=== PATIENT | male | born 1955 | race Caucasian/White ===

== ENCOUNTER 2019-10-14 15:19 | Inpatient (IN) ==
[2019-10-14] MEDS ORDERED: Ipratropium/Albuterol Neb 3 ML ONE (15:35)
[2019-10-14] MEDS ORDERED: methylPREDNISolone 125 MG/2 ML VIAL IVP ONE (15:47)
[2019-10-14 16:26] LABS: Basophils # 0.1 K/mcL (0.0-0.2); Basophils % 0.8 %; Eosinophils # 0.5 K/mcL (0.0-0.6); Eosinophils % 4.4 %; Hematocrit 44.2 % (37.5-50.1); Immature Granulocytes % 1.5 % (0-4); Lymphocytes # 1.9 K/mcL (0.6-4.6); Lymphocytes % 18.3 %; Mean Corpuscular HGB Conc 33.9 g/dL (31.6-35.5); Mean Corpuscular Hemoglobin 30.7 pg (28.0-33.3); Mean Corpuscular Volume 90.6 fL (83.0-100.0); Mean Platelet Volume 10.7 fL (9.4-12.4); Monocytes # 1.3 K/mcL (0.0-1.3); Monocytes % 12.9 %; Neutrophils # 6.4 K/mcL (1.6-8.9); Platelet Count 228 K/mcL (140-400); Red Blood Count 4.88 M/mcL (4.19-5.50); Red Cell Distribution Width 14.4 % (11.5-14.5); Segmented Neutrophils % 62.1 %; White Blood Count 10.3 K/mcL (4.3-11.1)
[2019-10-14 16:29] LABS: ABG Base Excess 3 mEq/L (-2 to 3); ABG HCO3 29 mEq/L (21-27); ABG Oxygen Saturation 85 % (95-98); ABG PCO2 50 mmHg (35-45); ABG PH 7.37 pH Units (7.32-7.45); ABG PO2 53 mmHg (85-104); ABG TCO2 30 mEq/L (20-26)
[2019-10-14 16:32] LABS: Prothrombin Time 11.3 Seconds (9.4-12.1)
[2019-10-14] MEDS ORDERED: Ipratropium/Albuterol Neb 3 ML IH ONE ×2 (16:33)
[2019-10-14 16:34] LABS: Activated Partial Thrombo Time 31.2 Seconds (26.0-36.0)
[2019-10-14] MEDS ORDERED: Azithromycin 500 MG in D5% in Water 250 ML IVPB ONE (16:34)
[2019-10-14 16:39] LABS: Alanine Aminotransferase 12 Units/L (7-52); Albumin/Globulin Ratio 1.4 (1.1-2.2); Alkaline Phosphatase 60 Units/L (34-104); Aspartate Amino Transferase 10 Units/L (13-39); BUN/Creatinine Ratio 19 (6-26); Bilirubin,Direct 0.2 mg/dL (0.0-0.2); Bilirubin,Indirect 0.4 mg/dL (0.0-1.0); Bilirubin,Total 0.6 mg/dL (0.3-1.0); Blood Urea Nitrogen 18 mg/dL (8-23); Calcium 9.1 mg/dL (8.6-10.3); Carbon Dioxide 28 mEq/L (23-29); Chloride 102 mEq/L (98-107); Globulin 2.8 g/dL (2.4-3.5); Glucose 106 mg/dL (70-105); Osmolality,Calculated 288 (280-300); Potassium 4.2 mEq/L (3.5-5.1); Sodium 138 mEq/L (136-145); Total Protein 6.8 g/dL (6.4-8.9); eGFR For African Americans > 60 (> 60); eGFR For Non-African Americans > 60 (> 60)
[2019-10-14 16:42] LABS: Troponin I < 0.03 ng/mL (< 0.04)
[2019-10-14] MEDS ORDERED: Isovue-370 500 ML BOTTLE IVP ONE (16:43)
[2019-10-14] MEDS ORDERED: D5% in Water 1,000 ML IVC PRN (21:28)
[2019-10-14] MEDS ORDERED: Acetaminophen 325 MG TABLET PO PRN (21:28)
[2019-10-14] MEDS ORDERED: Dextrose Gel 15 GM/37.5 ML TUBE PO PRN ×2 (21:28)
[2019-10-14] MEDS ORDERED: Ondansetron 4 MG/2 ML VIAL IVP PRN (21:28)
[2019-10-14] MEDS ORDERED: *HR* Dextrose 50 % in Water (Vial) 50 ML VIAL IVP PRN (21:28)
[2019-10-14] MEDS ORDERED: Naloxone 0.4 MG/ML INJ IVP PRN (21:28)
[2019-10-14] MEDS: Lisinopril-HCTZ 20-12.5mg TABLET PO SCH (22:38)
[2019-10-14] MEDS: Budesonide/Formoterol 160/4.5 1 PUFF INH IH SCH (22:38)
[2019-10-14] MEDS: Ipratropium/Albuterol Neb 3 ML IH PRN (22:38)
[2019-10-14] MEDS: methylPREDNISolone 125 MG/2 ML VIAL IVP SCH (22:38)
[2019-10-15] MEDS ORDERED: Insulin LISPRO 300 UNITS/3 ML VIAL SQ SCH
[2019-10-15] MEDS ORDERED: Ipratropium/Albuterol Neb 3 ML IH SCH
[2019-10-15] MEDS: *HR* Enoxaparin 40 MG/0.4 ML SYRINGE SQ SCH (06:10)
[2019-10-15 06:16] LABS: Basophils % 0.2 %; Eosinophils % 0.1 %; Hematocrit 42.5 % (37.5-50.1); Hemoglobin 14.5 g/dL (12.9-16.9); Immature Granulocytes % 1.7 % (0-4); Lymphocytes # 1.2 K/mcL (0.6-4.6); Lymphocytes % 11.2 %; Mean Corpuscular HGB Conc 34.1 g/dL (31.6-35.5); Mean Corpuscular Hemoglobin 30.3 pg (28.0-33.3); Mean Corpuscular Volume 88.9 fL (83.0-100.0); Mean Platelet Volume 10.2 fL (9.4-12.4); Monocytes # 0.2 K/mcL (0.0-1.3); Monocytes % 1.6 %; Neutrophils # 8.9 K/mcL (1.6-8.9); Platelet Count 206 K/mcL (140-400); Red Blood Count 4.78 M/mcL (4.19-5.50); Segmented Neutrophils % 85.2 %; White Blood Count 10.4 K/mcL (4.3-11.1)
[2019-10-15] MEDS: Ipratropium/Albuterol Neb 3 ML IH PRN ×3 (06:16→22:48)
[2019-10-15] MEDS: Budesonide/Formoterol 160/4.5 1 PUFF INH IH SCH ×2 (06:18→22:47)
[2019-10-15 06:21] LABS: VBG HCO3 27 mEq/L (21-27); VBG PCO2 40 mmHg (41-51); VBG PH 7.43 pH Units (7.32-7.42); VBG PO2 98 mmHg (25-50)
[2019-10-15 06:31] LABS: BUN/Creatinine Ratio 18 (6-26); Blood Urea Nitrogen 17 mg/dL (8-23); Carbon Dioxide 28 mEq/L (23-29); Chloride 99 mEq/L (98-107); Glucose 192 mg/dL (70-105); Magnesium 1.7 mg/dL (1.6-2.6); Osmolality,Calculated 289 (280-300); Phosphorous 3.9 mg/dL (2.7-4.5); Potassium 4.1 mEq/L (3.5-5.1); Sodium 136 mEq/L (136-145); eGFR For African Americans > 60 (> 60); eGFR For Non-African Americans > 60 (> 60)
[2019-10-15 06:37] LABS: VBG HCO3 27 mEq/L (21-27); VBG PCO2 39 mmHg (41-51); VBG PH 7.44 pH Units (7.32-7.42); VBG PO2 125 mmHg (25-50)
[2019-10-15] MEDS ORDERED: *HR* Metformin 500 MG TABLET PO SCH (08:00)
[2019-10-15] MEDS: Insulin LISPRO 300 UNITS/3 ML VIAL SQ SCH ×4 (08:26→22:45)
[2019-10-15] MEDS: Aspirin Enteric Coated 81 MG Tablet PO SCH (08:27)
[2019-10-15] MEDS: Lisinopril-HCTZ 20-12.5mg TABLET PO SCH ×2 (08:27→22:46)
[2019-10-15] MEDS: Azithromycin 250 MG TABLET PO SCH (08:28)
[2019-10-15] MEDS: methylPREDNISolone 125 MG/2 ML VIAL IVP SCH ×4 (08:28→22:46)
[2019-10-15] MEDS ORDERED: Lisinopril-HCTZ 20-12.5mg TABLET PO SCH (09:00)
[2019-10-15 12:31] LABS: Estimated Average Glucose 143 mg/dl
[2019-10-15] MEDS: cefTRIAXone 1,000 MG in Water for inj. (sterile) 10 ML IVP SCH (18:04)
[2019-10-16 05:30] LABS: Basophils % 0.1 %; Hematocrit 42.7 % (37.5-50.1); Hemoglobin 14.4 g/dL (12.9-16.9); Immature Granulocytes % 0.9 % (0-4); Lymphocytes # 1.3 K/mcL (0.6-4.6); Lymphocytes % 5.9 %; Mean Corpuscular HGB Conc 33.7 g/dL (31.6-35.5); Mean Corpuscular Hemoglobin 30.7 pg (28.0-33.3); Mean Platelet Volume 10.6 fL (9.4-12.4); Monocytes # 1.1 K/mcL (0.0-1.3); Platelet Count 245 K/mcL (140-400); Red Blood Count 4.69 M/mcL (4.19-5.50); Red Cell Distribution Width 14.4 % (11.5-14.5); Segmented Neutrophils % 88.1 %; White Blood Count 21.9 K/mcL (4.3-11.1)
[2019-10-16 05:32] LABS: Neutrophils # 19.3 K/mcL (1.6-8.9)
[2019-10-16 05:44] LABS: Calcium 8.9 mg/dL (8.6-10.3); Potassium 4.5 mEq/L (3.5-5.1)
[2019-10-16] MEDS: Ipratropium/Albuterol Neb 3 ML IH PRN ×2 (06:09→11:19)
[2019-10-16] MEDS: Budesonide/Formoterol 160/4.5 1 PUFF INH IH SCH ×2 (06:10→22:08)
[2019-10-16] MEDS: *HR* Enoxaparin 40 MG/0.4 ML SYRINGE SQ SCH (06:54)
[2019-10-16] MEDS: methylPREDNISolone 125 MG/2 ML VIAL IVP SCH ×3 (08:00→17:19)
[2019-10-16] MEDS: Azithromycin 250 MG TABLET PO SCH (08:01)
[2019-10-16] MEDS: Aspirin Enteric Coated 81 MG Tablet PO SCH (08:01)
[2019-10-16] MEDS: Insulin LISPRO 300 UNITS/3 ML VIAL SQ SCH ×4 (08:04→22:00)
[2019-10-16] MEDS: 0.9 % Sodium Chloride 1,000 ML IVC SCH ×2 (13:37→21:57)
[2019-10-16] MEDS: cefTRIAXone 1,000 MG in Water for inj. (sterile) 10 ML IVP SCH (17:19)
[2019-10-16] MEDS: Lisinopril-HCTZ 20-12.5mg TABLET PO SCH (21:49)
[2019-10-17 05:51] LABS: Basophils % 0.1 %; Eosinophils % 0.1 %; Hematocrit 40.8 % (37.5-50.1); Hemoglobin 13.6 g/dL (12.9-16.9); Immature Granulocytes % 0.7 % (0-4); Lymphocytes # 0.9 K/mcL (0.6-4.6); Mean Corpuscular HGB Conc 33.3 g/dL (31.6-35.5); Mean Corpuscular Hemoglobin 30.6 pg (28.0-33.3); Mean Corpuscular Volume 91.7 fL (83.0-100.0); Mean Platelet Volume 10.4 fL (9.4-12.4); Monocytes % 5.6 %; Neutrophils # 15.6 K/mcL (1.6-8.9); Platelet Count 213 K/mcL (140-400); Red Blood Count 4.45 M/mcL (4.19-5.50); Red Cell Distribution Width 14.6 % (11.5-14.5); Segmented Neutrophils % 88.5 %; White Blood Count 17.6 K/mcL (4.3-11.1)
[2019-10-17 06:03] LABS: BUN/Creatinine Ratio 36 (6-26); Blood Urea Nitrogen 44 mg/dL (8-23); Calcium 8.4 mg/dL (8.6-10.3); Carbon Dioxide 26 mEq/L (23-29); Chloride 101 mEq/L (98-107); Glucose 154 mg/dL (70-105); Osmolality,Calculated 296 (280-300); Potassium 4.5 mEq/L (3.5-5.1); Sodium 136 mEq/L (136-145); eGFR For African Americans > 60 (> 60); eGFR For Non-African Americans > 60 (> 60)
[2019-10-17] MEDS: 0.9 % Sodium Chloride 1,000 ML IVC SCH ×3 (06:40→17:26)
[2019-10-17] MEDS: methylPREDNISolone 125 MG/2 ML VIAL IVP SCH ×2 (06:41→17:27)
[2019-10-17] MEDS: *HR* Enoxaparin 40 MG/0.4 ML SYRINGE SQ SCH (06:41)
[2019-10-17] MEDS: Budesonide/Formoterol 160/4.5 1 PUFF INH IH SCH ×2 (08:08→22:01)
[2019-10-17] MEDS: Insulin LISPRO 300 UNITS/3 ML VIAL SQ SCH ×4 (08:59→21:39)
[2019-10-17] MEDS: Aspirin Enteric Coated 81 MG Tablet PO SCH (09:00)
[2019-10-17] MEDS: Azithromycin 250 MG TABLET PO SCH (09:00)
[2019-10-17] MEDS: cefTRIAXone 1,000 MG in Water for inj. (sterile) 10 ML IVP SCH (17:27)
[2019-10-17] MEDS: Lisinopril-HCTZ 20-12.5mg TABLET PO SCH (21:40)
[2019-10-18] MEDS: 0.9 % Sodium Chloride 1,000 ML IVC SCH (03:17)
[2019-10-18 05:41] LABS: Basophils % 0.2 %; Hematocrit 39.1 % (37.5-50.1); Hemoglobin 13.2 g/dL (12.9-16.9); Immature Granulocytes % 1.3 % (0-4); Lymphocytes # 0.9 K/mcL (0.6-4.6); Lymphocytes % 6.3 %; Mean Corpuscular HGB Conc 33.8 g/dL (31.6-35.5); Mean Corpuscular Hemoglobin 30.6 pg (28.0-33.3); Mean Corpuscular Volume 90.7 fL (83.0-100.0); Mean Platelet Volume 10.9 fL (9.4-12.4); Monocytes % 7.3 %; Neutrophils # 12.1 K/mcL (1.6-8.9); Platelet Count 196 K/mcL (140-400); Red Blood Count 4.31 M/mcL (4.19-5.50); Red Cell Distribution Width 14.3 % (11.5-14.5); Segmented Neutrophils % 84.9 %; White Blood Count 14.2 K/mcL (4.3-11.1)
[2019-10-18] MEDS: *HR* Enoxaparin 40 MG/0.4 ML SYRINGE SQ SCH (05:42)
[2019-10-18] MEDS: methylPREDNISolone 125 MG/2 ML VIAL IVP SCH (05:42)
[2019-10-18 05:56] LABS: BUN/Creatinine Ratio 37 (6-26); Blood Urea Nitrogen 36 mg/dL (8-23); Calcium 7.9 mg/dL (8.6-10.3); Carbon Dioxide 23 mEq/L (23-29); Chloride 105 mEq/L (98-107); Glucose 125 mg/dL (70-105); Osmolality,Calculated 292 (280-300); Potassium 4.1 mEq/L (3.5-5.1); Sodium 136 mEq/L (136-145); eGFR For African Americans > 60 (> 60); eGFR For Non-African Americans > 60 (> 60)
[2019-10-18 07:35] VITALS: BP 158/86
[2019-10-18] MEDS: Insulin LISPRO 300 UNITS/3 ML VIAL SQ SCH ×2 (08:09→11:59)
[2019-10-18] MEDS: Aspirin Enteric Coated 81 MG Tablet PO SCH (08:34)
[2019-10-18] MEDS: Azithromycin 250 MG TABLET PO SCH (08:34)
[2019-10-18] MEDS: Budesonide/Formoterol 160/4.5 1 PUFF INH IH SCH (09:38)
== END 2019-10-18 13:03 | disposition home or self-care (01) | DRG 190 ==
LOC: EMEROOGRE 15:19 → INPGRE 20:44
PROVIDERS: ADMIT Family Medicine; ATTEND Family Medicine

== ENCOUNTER 2020-09-07 11:36 | Inpatient (IN) ==
[2020-09-07] MEDS ORDERED: Ipratropium/Albuterol Neb 3 ML IH PRN (19:40)
[2020-09-07] MEDS ORDERED: Fluticasone Propionate Nasal 50 MCG/SPRAY BOTTLE NS PRN (19:40)
[2020-09-07] MEDS: Budesonide/Formoterol 160/4.5 1 PUFF INH IH SCH (21:39)
[2020-09-07] MEDS: Furosemide 20 MG TABLET PO SCH (22:00)
[2020-09-07] MEDS: cilostazoL 100 MG TABLET PO SCH (22:00)
[2020-09-08] MEDS: *HR* Enoxaparin 40 MG/0.4 ML SYRINGE SQ SCH (06:37)
[2020-09-08] MEDS: *HR* Metformin 500 MG TABLET PO SCH ×2 (09:48→16:36)
[2020-09-08] MEDS: Aspirin Enteric Coated 81 MG Tablet PO SCH (09:49)
[2020-09-08] MEDS: Furosemide 20 MG TABLET PO SCH ×2 (09:49→16:36)
[2020-09-08] MEDS: cilostazoL 100 MG TABLET PO SCH ×2 (09:49→20:18)
[2020-09-08] MEDS: Tiotropium 10 INH DOSE IH SCH (10:18)
[2020-09-08] MEDS: Budesonide/Formoterol 160/4.5 1 PUFF INH IH SCH ×2 (10:19→19:57)
[2020-09-08] MEDS ORDERED: Loratadine 10 MG TABLET PO PRN (14:59)
[2020-09-09] MEDS: *HR* Enoxaparin 40 MG/0.4 ML SYRINGE SQ SCH (06:07)
[2020-09-09] MEDS: cilostazoL 100 MG TABLET PO SCH ×2 (08:31→20:22)
[2020-09-09] MEDS: *HR* Metformin 500 MG TABLET PO SCH ×2 (08:31→17:32)
[2020-09-09] MEDS: Isosorbide MONOnitrate (24 HR) 30 MG TAB.ER.24H PO SCH (08:32)
[2020-09-09] MEDS: Aspirin Enteric Coated 81 MG Tablet PO SCH (08:32)
[2020-09-09] MEDS: Furosemide 20 MG TABLET PO SCH ×2 (08:32→17:32)
[2020-09-09] MEDS: Budesonide/Formoterol 160/4.5 1 PUFF INH IH SCH ×2 (10:20→20:16)
[2020-09-09] MEDS: Tiotropium 10 INH DOSE IH SCH (10:21)
[2020-09-10] MEDS: *HR* Enoxaparin 40 MG/0.4 ML SYRINGE SQ SCH (04:43)
[2020-09-10] MEDS: Isosorbide MONOnitrate (24 HR) 30 MG TAB.ER.24H PO SCH (08:45)
[2020-09-10] MEDS: cilostazoL 100 MG TABLET PO SCH (08:45)
[2020-09-10] MEDS: *HR* Metformin 500 MG TABLET PO SCH (08:45)
[2020-09-10] MEDS: Aspirin Enteric Coated 81 MG Tablet PO SCH (08:45)
[2020-09-10] MEDS: Furosemide 20 MG TABLET PO SCH (08:45)
[2020-09-10 09:52] LABS: Basophils # 0.1 K/mcL (0.0-0.2); Basophils % 0.5 %; Eosinophils # 0.6 K/mcL (0.0-0.6); Eosinophils % 4.3 %; Hemoglobin 12.2 g/dL (12.9-16.9); Immature Granulocytes % 1.2 % (0-4); Lymphocytes # 2.3 K/mcL (0.6-4.6); Lymphocytes % 16.6 %; Mean Corpuscular HGB Conc 33.9 g/dL (31.6-35.5); Mean Corpuscular Hemoglobin 29.7 pg (28.0-33.3); Mean Corpuscular Volume 87.6 fL (83.0-100.0); Mean Platelet Volume 10.8 fL (9.4-12.4); Monocytes # 1.8 K/mcL (0.0-1.3); Monocytes % 13.2 %; Neutrophils # 8.9 K/mcL (1.6-8.9); Platelet Count 300 K/mcL (140-400); Red Blood Count 4.11 M/mcL (4.19-5.50); Red Cell Distribution Width 13.6 % (11.5-14.5); Segmented Neutrophils % 64.2 %; White Blood Count 13.8 K/mcL (4.3-11.1)
[2020-09-10 10:04] LABS: Calcium 8.2 mg/dL (8.6-10.3); Potassium 3.7 mEq/L (3.5-5.1)
[2020-09-10 10:09] LABS: Troponin I 0.03 ng/mL (< 0.04)
[2020-09-10] MEDS ORDERED: 0.9 % Sodium Chloride 250 ML ONE (10:37)
[2020-09-10] MEDS ORDERED: 0.9 % Sodium Chloride 250 ML IVC ONE (10:39)
[2020-09-10] MEDS ORDERED: Apixaban 5 MG TABLET PO SCH (10:44)
[2020-09-10] MEDS: Budesonide/Formoterol 160/4.5 1 PUFF INH IH SCH (10:54)
[2020-09-10] MEDS: Tiotropium 10 INH DOSE IH SCH (10:54)
[2020-09-10] MEDS ORDERED: 0.9 % Sodium Chloride 1,000 ML IVC SCH (11:15)
[2020-09-10 12:54] VITALS: BP 110/79
== END 2020-09-10 14:50 | disposition short-term general hospital (02) | DRG 948 ==
LOC: INPGRE 18:05
PROVIDERS: ADMIT Family Medicine; ATTEND Family Medicine

== ENCOUNTER 2021-01-20 20:51 | Inpatient (IN) ==
[2021-01-20] MEDS ORDERED: 0.9 % Sodium Chloride 1,000 ML IVC ONE ×2 (21:13→22:58)
[2021-01-20 22:40] LABS: Basophils % 0.3 %; Eosinophils # 0.1 K/mcL (0.0-0.6); Eosinophils % 1.9 %; Hematocrit 41.3 % (37.5-50.1); Hemoglobin 13.7 g/dL (12.9-16.9); Immature Granulocytes % 0.7 % (0-4); Lymphocytes # 1.8 K/mcL (0.6-4.6); Lymphocytes % 25.8 %; Mean Corpuscular HGB Conc 33.2 g/dL (31.6-35.5); Mean Corpuscular Hemoglobin 29.3 pg (28.0-33.3); Mean Corpuscular Volume 88.2 fL (83.0-100.0); Mean Platelet Volume 10.5 fL (9.4-12.4); Monocytes # 1.2 K/mcL (0.0-1.3); Monocytes % 17.7 %; Neutrophils # 3.7 K/mcL (1.6-8.9); Platelet Count 155 K/mcL (140-400); Red Blood Count 4.68 M/mcL (4.19-5.50); Red Cell Distribution Width 14.3 % (11.5-14.5); Segmented Neutrophils % 53.6 %; White Blood Count 6.9 K/mcL (4.3-11.1)
[2021-01-20 22:54] LABS: Alanine Aminotransferase 23 Units/L (7-52); Albumin 2.8 g/dL (3.5-5.7); Albumin/Globulin Ratio 1.1 (1.1-2.2); Alkaline Phosphatase 60 Units/L (34-104); Aspartate Amino Transferase 25 Units/L (13-39); BUN/Creatinine Ratio 29 (6-26); Bilirubin,Total 0.5 mg/dL (0.3-1.0); Blood Urea Nitrogen 32 mg/dL (8-23); Calcium 7.8 mg/dL (8.6-10.3); Carbon Dioxide 26 mEq/L (23-29); Chloride 101 mEq/L (98-107); Globulin 2.5 g/dL (2.4-3.5); Glucose 87 mg/dL (70-105); Osmolality,Calculated 286 (280-300); Sodium 135 mEq/L (136-145); Total Protein 5.3 g/dL (6.4-8.9); eGFR For African Americans > 60 (> 60); eGFR For Non-African Americans > 60 (> 60)
[2021-01-20] MEDS ORDERED: Isovue-370 500 ML BOTTLE IVP ONE (22:57)
[2021-01-21 01:03] LABS: Bilirubin,Urine Negative (Negative); Blood,Urine Moderate (Negative); Clarity,Urine Clear (Clear); Color,Urine Yellow (Yellow); Glucose,Urine (UA) Normal (Normal); Ketones,Urine Trace mg/dL (Negative); Leukocyte Esterase,Urine Negative (Negative); Nitrite,Urine Negative (Negative); Protein,Urine >=300 mg/dL (Neg-Trace); Specific Gravity,Urine 1.025 (1.010-1.025); Urobilinogen,Urine Normal (Normal)
[2021-01-21 01:37] LABS: Hyaline Casts,Urine Few per lpf (None Seen); WBC,Urine 0-3 per hpf (0-3)
[2021-01-21] MEDS ORDERED: Naloxone 0.4 MG/ML INJ IVP PRN (02:54)
[2021-01-21] MEDS ORDERED: Ondansetron 4 MG/2 ML VIAL IVP PRN (02:54)
[2021-01-21] MEDS ORDERED: Ondansetron ODT 4 MG TAB.RAPDIS SL PRN (02:54)
[2021-01-21 03:16] LABS: Lactate Dehydrogenase 214 Units/L (140-271)
[2021-01-21] MEDS: 0.9 % Sodium Chloride 1,000 ML IVC SCH (03:59)
[2021-01-21 06:12] LABS: Troponin I <= 0.04 ng/mL (0-0.04)
[2021-01-21] MEDS: *HR* Enoxaparin 40 MG/0.4 ML SYRINGE SQ SCH (06:16)
[2021-01-21] MEDS: Budesonide/Formoterol 160/4.5 1 PUFF INH IH SCH ×2 (08:05→20:26)
[2021-01-21] MEDS: Tiotropium 10 INH DOSE IH SCH (08:05)
[2021-01-21] MEDS: Furosemide 40 MG TABLET PO SCH (08:44)
[2021-01-21] MEDS: lisinopriL 20 MG TABLET PO SCH (08:44)
[2021-01-21] MEDS: hydrOXYzine pamoate 25 MG CAPSULE PO SCH ×2 (08:44→20:58)
[2021-01-21] MEDS: Isosorbide MONOnitrate (24 HR) 30 MG TAB.ER.24H PO SCH (08:44)
[2021-01-21 08:47] LABS: C-Reactive Protein 8 mg/L (Less than 10)
[2021-01-21] MEDS ORDERED: Apixaban 5 MG TABLET PO SCH (09:00)
[2021-01-21 09:03] LABS: Ferritin 958 ng/mL (20-250)
[2021-01-21 19:16] LABS: Estimated Average Glucose 134 mg/dl; Hemoglobin A1C 6.3 %
[2021-01-22] MEDS: *HR* Enoxaparin 40 MG/0.4 ML SYRINGE SQ SCH (05:28)
[2021-01-22 06:06] LABS: Hematocrit 37.9 % (37.5-50.1); Hemoglobin 12.6 g/dL (12.9-16.9); Mean Corpuscular HGB Conc 33.2 g/dL (31.6-35.5); Mean Corpuscular Hemoglobin 29.4 pg (28.0-33.3); Mean Corpuscular Volume 88.6 fL (83.0-100.0); Mean Platelet Volume 10.4 fL (9.4-12.4); Platelet Count 136 K/mcL (140-400); Red Blood Count 4.28 M/mcL (4.19-5.50); Red Cell Distribution Width 14.3 % (11.5-14.5); White Blood Count 5.5 K/mcL (4.3-11.1)
[2021-01-22 06:28] LABS: Alanine Aminotransferase 23 Units/L (7-52); Albumin 2.7 g/dL (3.5-5.7); Alkaline Phosphatase 61 Units/L (34-104); Aspartate Amino Transferase 21 Units/L (13-39); BUN/Creatinine Ratio 24 (6-26); Bilirubin,Total 0.5 mg/dL (0.3-1.0); Blood Urea Nitrogen 24 mg/dL (8-23); Calcium 7.4 mg/dL (8.6-10.3); Carbon Dioxide 25 mEq/L (23-29); Chloride 103 mEq/L (98-107); Globulin 2.6 g/dL (2.4-3.5); Glucose 89 mg/dL (70-105); Magnesium 1.4 mg/dL (1.6-2.6); Osmolality,Calculated 284 (280-300); Potassium 3.9 mEq/L (3.5-5.1); Sodium 135 mEq/L (136-145); Total Protein 5.3 g/dL (6.4-8.9); eGFR For African Americans > 60 (> 60); eGFR For Non-African Americans > 60 (> 60)
[2021-01-22] MEDS: 0.9 % Sodium Chloride 1,000 ML IVC SCH (09:07)
[2021-01-22] MEDS: lisinopriL 20 MG TABLET PO SCH (09:09)
[2021-01-22] MEDS: Isosorbide MONOnitrate (24 HR) 30 MG TAB.ER.24H PO SCH (09:09)
[2021-01-22] MEDS: hydrOXYzine pamoate 25 MG CAPSULE PO SCH ×2 (09:10→20:05)
[2021-01-22] MEDS: Furosemide 40 MG TABLET PO SCH (09:10)
[2021-01-22] MEDS: Tiotropium 10 INH DOSE IH SCH (10:10)
[2021-01-22] MEDS: Budesonide/Formoterol 160/4.5 1 PUFF INH IH SCH ×2 (10:10→20:15)
[2021-01-22 14:08] LABS: C-Reactive Protein 15 mg/L (Less than 10); Ferritin 986 ng/mL (20-250)
[2021-01-23] MEDS: *HR* Enoxaparin 40 MG/0.4 ML SYRINGE SQ SCH (04:51)
[2021-01-23] MEDS: lisinopriL 20 MG TABLET PO SCH (07:55)
[2021-01-23] MEDS: hydrOXYzine pamoate 25 MG CAPSULE PO SCH ×2 (07:55→20:27)
[2021-01-23] MEDS: Furosemide 40 MG TABLET PO SCH (07:56)
[2021-01-23] MEDS: Isosorbide MONOnitrate (24 HR) 30 MG TAB.ER.24H PO SCH (07:56)
[2021-01-23 08:21] LABS: Hematocrit 37.7 % (37.5-50.1); Hemoglobin 12.6 g/dL (12.9-16.9); Mean Corpuscular HGB Conc 33.4 g/dL (31.6-35.5); Mean Corpuscular Hemoglobin 29.2 pg (28.0-33.3); Mean Corpuscular Volume 87.3 fL (83.0-100.0); Mean Platelet Volume 10.6 fL (9.4-12.4); Platelet Count 124 K/mcL (140-400); Red Blood Count 4.32 M/mcL (4.19-5.50); Red Cell Distribution Width 14.1 % (11.5-14.5); White Blood Count 4.9 K/mcL (4.3-11.1)
[2021-01-23 08:40] LABS: Alanine Aminotransferase 18 Units/L (7-52); Albumin 2.5 g/dL (3.5-5.7); Alkaline Phosphatase 65 Units/L (34-104); Aspartate Amino Transferase 19 Units/L (13-39); BUN/Creatinine Ratio 26 (6-26); Bilirubin,Total 0.5 mg/dL (0.3-1.0); Blood Urea Nitrogen 23 mg/dL (8-23); Calcium 7.2 mg/dL (8.6-10.3); Carbon Dioxide 23 mEq/L (23-29); Chloride 104 mEq/L (98-107); Globulin 2.4 g/dL (2.4-3.5); Glucose 93 mg/dL (70-105); Osmolality,Calculated 281 (280-300); Potassium 3.9 mEq/L (3.5-5.1); Sodium 134 mEq/L (136-145); Total Protein 4.9 g/dL (6.4-8.9); eGFR For African Americans > 60 (> 60); eGFR For Non-African Americans > 60 (> 60)
[2021-01-23] MEDS: Budesonide/Formoterol 160/4.5 1 PUFF INH IH SCH ×2 (09:15→20:11)
[2021-01-23] MEDS: Tiotropium 10 INH DOSE IH SCH (09:16)
[2021-01-23 13:48] LABS: C-Reactive Protein 42 mg/L (Less than 10)
[2021-01-23 14:02] LABS: Ferritin 1041 ng/mL (20-250)
[2021-01-23] MEDS: levoFLOXacin 750 MG/150 ML 750 MG/150 ML BAG IVPB SCH (14:23)
[2021-01-23] MEDS: Dexamethasone Sodium Phos/PF 10 MG/ML VIAL IVP SCH (14:23)
[2021-01-23] MEDS ORDERED: Remdesivir 200 MG in 0.9 % Sodium Chloride 100 ML IVPB ONE (21:00)
[2021-01-24] MEDS: *HR* Enoxaparin 40 MG/0.4 ML SYRINGE SQ SCH (05:57)
[2021-01-24 06:02] LABS: Albumin 2.5 g/dL (3.5-5.7); Bilirubin,Direct 0.1 mg/dL (0.0-0.2); Bilirubin,Indirect 0.2 mg/dL (0.0-1.0); Bilirubin,Total 0.3 mg/dL (0.3-1.0); Globulin 2.5 g/dL (2.4-3.5)
[2021-01-24] MEDS: Furosemide 40 MG TABLET PO SCH (08:51)
[2021-01-24] MEDS: levoFLOXacin 750 MG/150 ML 750 MG/150 ML BAG IVPB SCH (08:51)
[2021-01-24] MEDS: hydrOXYzine pamoate 25 MG CAPSULE PO SCH ×2 (08:52→20:38)
[2021-01-24] MEDS: Dexamethasone Sodium Phos/PF 10 MG/ML VIAL IVP SCH (08:52)
[2021-01-24] MEDS: lisinopriL 20 MG TABLET PO SCH (08:52)
[2021-01-24] MEDS: Isosorbide MONOnitrate (24 HR) 30 MG TAB.ER.24H PO SCH (08:52)
[2021-01-24] MEDS: Tiotropium 10 INH DOSE IH SCH (11:08)
[2021-01-24] MEDS: Budesonide/Formoterol 160/4.5 1 PUFF INH IH SCH ×2 (11:09→19:39)
[2021-01-24 18:55] LABS: Bilirubin,Urine Negative (Negative); Blood,Urine Moderate (Negative); Clarity,Urine Clear (Clear); Color,Urine Yellow (Yellow); Glucose,Urine (UA) Normal (Normal); Ketones,Urine Negative (Negative); Leukocyte Esterase,Urine Negative (Negative); Nitrite,Urine Negative (Negative); Protein,Urine >=300 mg/dL (Neg-Trace); Specific Gravity,Urine >= 1.030 (1.010-1.025); Urobilinogen,Urine Normal (Normal)
[2021-01-24 19:04] LABS: Hyaline Casts,Urine Few per lpf (None Seen); RBC,Urine 0-3 per hpf (0-3); Squamous Epithelial Cell,Urine Few per hpf (None-Few); WBC,Urine 0-3 per hpf (0-3)
[2021-01-24 19:05] LABS: Bacteria,Urine None Seen per hpf (None-Few)
[2021-01-24] MEDS: Remdesivir 100 MG in 0.9 % Sodium Chloride 100 ML IVPB SCH (20:39)
[2021-01-25] MEDS: *HR* Enoxaparin 40 MG/0.4 ML SYRINGE SQ SCH (04:38)
[2021-01-25 06:04] LABS: Albumin 2.4 g/dL (3.5-5.7); Bilirubin,Direct 0.1 mg/dL (0.0-0.2); Bilirubin,Indirect 0.2 mg/dL (0.0-1.0); Bilirubin,Total 0.3 mg/dL (0.3-1.0); Globulin 2.5 g/dL (2.4-3.5); Total Protein 4.9 g/dL (6.4-8.9)
[2021-01-25] MEDS: levoFLOXacin 750 MG/150 ML 750 MG/150 ML BAG IVPB SCH (08:27)
[2021-01-25] MEDS: Dexamethasone Sodium Phos/PF 10 MG/ML VIAL IVP SCH (08:28)
[2021-01-25] MEDS: lisinopriL 20 MG TABLET PO SCH (08:28)
[2021-01-25] MEDS: Furosemide 40 MG TABLET PO SCH (08:29)
[2021-01-25] MEDS: hydrOXYzine pamoate 25 MG CAPSULE PO SCH ×2 (08:30→20:24)
[2021-01-25] MEDS: Isosorbide MONOnitrate (24 HR) 30 MG TAB.ER.24H PO SCH (08:30)
[2021-01-25] MEDS: Budesonide/Formoterol 160/4.5 1 PUFF INH IH SCH ×2 (09:17→20:18)
[2021-01-25] MEDS: Tiotropium 10 INH DOSE IH SCH (09:18)
[2021-01-25] MEDS ORDERED: Dextrose Gel 15 GM/37.5 ML TUBE PO PRN ×2 (09:20)
[2021-01-25] MEDS ORDERED: D5% in Water 1,000 ML IVC PRN (09:20)
[2021-01-25] MEDS ORDERED: *HR* Dextrose 50 % in Water (Syg) 50 ML SYRINGE IVP PRN (09:20)
[2021-01-25] MEDS: Insulin LISPRO 300 UNITS/3 ML VIAL SUBQ SCH ×3 (12:59→20:45)
[2021-01-25] MEDS: Remdesivir 100 MG in 0.9 % Sodium Chloride 100 ML IVPB SCH (19:48)
[2021-01-26] MEDS: *HR* Enoxaparin 40 MG/0.4 ML SYRINGE SQ SCH (04:03)
[2021-01-26 06:10] LABS: Basophils % 0.2 %; Hematocrit 36.5 % (37.5-50.1); Hemoglobin 12.2 g/dL (12.9-16.9); Immature Granulocytes % 1.3 % (0-4); Lymphocytes # 1.6 K/mcL (0.6-4.6); Mean Corpuscular HGB Conc 33.4 g/dL (31.6-35.5); Mean Corpuscular Hemoglobin 29.3 pg (28.0-33.3); Mean Corpuscular Volume 87.5 fL (83.0-100.0); Mean Platelet Volume 10.1 fL (9.4-12.4); Monocytes # 1.1 K/mcL (0.0-1.3); Monocytes % 11.2 %; Neutrophils # 6.9 K/mcL (1.6-8.9); Platelet Count 181 K/mcL (140-400); Red Blood Count 4.17 M/mcL (4.19-5.50); Red Cell Distribution Width 14.2 % (11.5-14.5); Segmented Neutrophils % 71.3 %; White Blood Count 9.7 K/mcL (4.3-11.1)
[2021-01-26 06:26] LABS: BUN/Creatinine Ratio 38 (6-26); Blood Urea Nitrogen 40 mg/dL (8-23); Calcium 7.3 mg/dL (8.6-10.3); Carbon Dioxide 25 mEq/L (23-29); Chloride 104 mEq/L (98-107); Glucose 120 mg/dL (70-105); Osmolality,Calculated 293 (280-300); Potassium 4.2 mEq/L (3.5-5.1); Sodium 136 mEq/L (136-145); eGFR For African Americans > 60 (> 60); eGFR For Non-African Americans > 60 (> 60)
[2021-01-26 06:27] LABS: Albumin 2.4 g/dL (3.5-5.7); Bilirubin,Direct 0.1 mg/dL (0.0-0.2); Bilirubin,Indirect 0.2 mg/dL (0.0-1.0); Bilirubin,Total 0.3 mg/dL (0.3-1.0); Globulin 2.4 g/dL (2.4-3.5); Total Protein 4.8 g/dL (6.4-8.9)
[2021-01-26] MEDS: Furosemide 40 MG TABLET PO SCH (08:47)
[2021-01-26] MEDS: hydrOXYzine pamoate 25 MG CAPSULE PO SCH ×2 (08:47→21:20)
[2021-01-26] MEDS: Insulin LISPRO 300 UNITS/3 ML VIAL SUBQ SCH ×4 (08:47→22:52)
[2021-01-26] MEDS: Dexamethasone Sodium Phos/PF 10 MG/ML VIAL IVP SCH (08:48)
[2021-01-26] MEDS: Isosorbide MONOnitrate (24 HR) 30 MG TAB.ER.24H PO SCH (08:48)
[2021-01-26] MEDS: lisinopriL 20 MG TABLET PO SCH (08:48)
[2021-01-26] MEDS: levoFLOXacin 750 MG/150 ML 750 MG/150 ML BAG IVPB SCH (08:50)
[2021-01-26] MEDS: Tiotropium 10 INH DOSE IH SCH (10:12)
[2021-01-26] MEDS: Budesonide/Formoterol 160/4.5 1 PUFF INH IH SCH ×2 (10:13→20:48)
[2021-01-26] MEDS: Remdesivir 100 MG in 0.9 % Sodium Chloride 100 ML IVPB SCH (21:19)
[2021-01-27] MEDS: *HR* Enoxaparin 40 MG/0.4 ML SYRINGE SQ SCH (04:57)
[2021-01-27 06:45] LABS: Albumin 2.5 g/dL (3.5-5.7); Bilirubin,Direct 0.1 mg/dL (0.0-0.2); Bilirubin,Indirect 0.3 mg/dL (0.0-1.0); Bilirubin,Total 0.4 mg/dL (0.3-1.0); Globulin 2.4 g/dL (2.4-3.5); Total Protein 4.9 g/dL (6.4-8.9)
[2021-01-27] MEDS: levoFLOXacin 750 MG/150 ML 750 MG/150 ML BAG IVPB SCH (08:15)
[2021-01-27] MEDS: lisinopriL 20 MG TABLET PO SCH (08:15)
[2021-01-27] MEDS: Furosemide 40 MG TABLET PO SCH (08:15)
[2021-01-27] MEDS: Isosorbide MONOnitrate (24 HR) 30 MG TAB.ER.24H PO SCH (08:15)
[2021-01-27] MEDS: hydrOXYzine pamoate 25 MG CAPSULE PO SCH ×2 (08:15→20:13)
[2021-01-27] MEDS: Tiotropium 10 INH DOSE IH SCH (10:09)
[2021-01-27] MEDS: Budesonide/Formoterol 160/4.5 1 PUFF INH IH SCH ×2 (10:10→21:30)
[2021-01-27] MEDS: Insulin LISPRO 300 UNITS/3 ML VIAL SUBQ SCH ×4 (11:40→20:09)
[2021-01-27] MEDS: Dexamethasone Sodium Phos/PF 10 MG/ML VIAL IVP SCH (12:28)
[2021-01-27] MEDS: Remdesivir 100 MG in 0.9 % Sodium Chloride 100 ML IVPB SCH (20:11)
[2021-01-28] MEDS: *HR* Enoxaparin 40 MG/0.4 ML SYRINGE SQ SCH (04:44)
[2021-01-28 07:31] LABS: Albumin 2.9 g/dL (3.5-5.7); Albumin/Globulin Ratio 1.2 (1.1-2.2); Bilirubin,Direct 0.1 mg/dL (0.0-0.2); Bilirubin,Indirect 0.4 mg/dL (0.0-1.0); Bilirubin,Total 0.5 mg/dL (0.3-1.0); Globulin 2.5 g/dL (2.4-3.5); Total Protein 5.4 g/dL (6.4-8.9)
[2021-01-28] MEDS: Insulin LISPRO 300 UNITS/3 ML VIAL SUBQ SCH ×4 (09:13→20:20)
[2021-01-28] MEDS: Furosemide 40 MG TABLET PO SCH (09:14)
[2021-01-28] MEDS: hydrOXYzine pamoate 25 MG CAPSULE PO SCH ×2 (09:14→20:15)
[2021-01-28] MEDS: levoFLOXacin 750 MG/150 ML 750 MG/150 ML BAG IVPB SCH (09:14)
[2021-01-28] MEDS: lisinopriL 20 MG TABLET PO SCH (09:14)
[2021-01-28] MEDS: Isosorbide MONOnitrate (24 HR) 30 MG TAB.ER.24H PO SCH (09:14)
[2021-01-28] MEDS: Dexamethasone Sodium Phos/PF 10 MG/ML VIAL IVP SCH (09:14)
[2021-01-28] MEDS: Tiotropium 10 INH DOSE IH SCH (09:22)
[2021-01-28] MEDS: Budesonide/Formoterol 160/4.5 1 PUFF INH IH SCH ×2 (09:22→20:05)
[2021-01-29 04:50] LABS: Basophils # 0.1 K/mcL (0.0-0.2); Basophils % 1.1 %; Eosinophils # 0.1 K/mcL (0.0-0.6); Eosinophils % 0.8 %; Hemoglobin 12.9 g/dL (12.9-16.9); Mean Corpuscular HGB Conc 33.9 g/dL (31.6-35.5); Mean Corpuscular Hemoglobin 29.1 pg (28.0-33.3); Mean Corpuscular Volume 85.8 fL (83.0-100.0); Platelet Count 236 K/mcL (140-400); Red Blood Count 4.43 M/mcL (4.19-5.50); Red Cell Distribution Width 14.1 % (11.5-14.5); White Blood Count 10.6 K/mcL (4.3-11.1)
[2021-01-29 05:01] LABS: Lymphocytes # 2.1 K/mcL (0.6-4.6); Monocytes # 0.9 K/mcL (0.0-1.3)
[2021-01-29 05:02] LABS: BUN/Creatinine Ratio 34 (6-26); Blood Urea Nitrogen 37 mg/dL (8-23); Calcium 7.6 mg/dL (8.6-10.3); Carbon Dioxide 26 mEq/L (23-29); Chloride 102 mEq/L (98-107); Glucose 103 mg/dL (70-105); Osmolality,Calculated 289 (280-300); Platelet Estimate Normal (Normal); Potassium 3.9 mEq/L (3.5-5.1); Sodium 135 mEq/L (136-145); eGFR For African Americans > 60 (> 60); eGFR For Non-African Americans > 60 (> 60)
[2021-01-29] MEDS: *HR* Enoxaparin 40 MG/0.4 ML SYRINGE SQ SCH (05:24)
[2021-01-29] MEDS: Insulin LISPRO 300 UNITS/3 ML VIAL SUBQ SCH ×4 (07:46→20:06)
[2021-01-29] MEDS: Tiotropium 10 INH DOSE IH SCH (08:16)
[2021-01-29] MEDS: Budesonide/Formoterol 160/4.5 1 PUFF INH IH SCH ×2 (08:17→20:06)
[2021-01-29] MEDS: levoFLOXacin 750 MG/150 ML 750 MG/150 ML BAG IVPB SCH (09:35)
[2021-01-29] MEDS: lisinopriL 20 MG TABLET PO SCH (09:36)
[2021-01-29] MEDS: Dexamethasone Sodium Phos/PF 10 MG/ML VIAL IVP SCH (09:36)
[2021-01-29] MEDS: hydrOXYzine pamoate 25 MG CAPSULE PO SCH ×2 (09:36→19:59)
[2021-01-29] MEDS: Isosorbide MONOnitrate (24 HR) 30 MG TAB.ER.24H PO SCH (09:37)
[2021-01-29] MEDS: Furosemide 40 MG TABLET PO SCH (09:37)
[2021-01-30] MEDS: *HR* Enoxaparin 40 MG/0.4 ML SYRINGE SQ SCH (05:03)
[2021-01-30] MEDS: Tiotropium 10 INH DOSE IH SCH (10:09)
[2021-01-30] MEDS: Budesonide/Formoterol 160/4.5 1 PUFF INH IH SCH ×2 (10:09→19:16)
[2021-01-30] MEDS: Furosemide 40 MG TABLET PO SCH (10:23)
[2021-01-30] MEDS: Insulin LISPRO 300 UNITS/3 ML VIAL SUBQ SCH ×4 (10:23→21:15)
[2021-01-30] MEDS: lisinopriL 20 MG TABLET PO SCH (10:23)
[2021-01-30] MEDS: hydrOXYzine pamoate 25 MG CAPSULE PO SCH ×2 (10:23→21:26)
[2021-01-30] MEDS: Isosorbide MONOnitrate (24 HR) 30 MG TAB.ER.24H PO SCH (10:23)
[2021-01-30] MEDS: levoFLOXacin 750 MG/150 ML 750 MG/150 ML BAG IVPB SCH (10:24)
[2021-01-30] MEDS: Dexamethasone Sodium Phos/PF 10 MG/ML VIAL IVP SCH (10:24)
[2021-01-30 16:02] LABS: Basophils % 0.2 %; Eosinophils % 0.1 %; Hematocrit 39.9 % (37.5-50.1); Hemoglobin 13.6 g/dL (12.9-16.9); Immature Granulocytes % 8.3 % (0-4); Lymphocytes # 1.2 K/mcL (0.6-4.6); Lymphocytes % 8.9 %; Mean Corpuscular HGB Conc 34.1 g/dL (31.6-35.5); Mean Corpuscular Hemoglobin 29.4 pg (28.0-33.3); Mean Corpuscular Volume 86.2 fL (83.0-100.0); Mean Platelet Volume 10.4 fL (9.4-12.4); Monocytes # 0.9 K/mcL (0.0-1.3); Monocytes % 6.5 %; Platelet Count 303 K/mcL (140-400); Red Blood Count 4.63 M/mcL (4.19-5.50); Red Cell Distribution Width 14.3 % (11.5-14.5); White Blood Count 13.1 K/mcL (4.3-11.1)
[2021-01-30 16:15] LABS: BUN/Creatinine Ratio 35 (6-26); Blood Urea Nitrogen 45 mg/dL (8-23); Calcium 8.2 mg/dL (8.6-10.3); Carbon Dioxide 23 mEq/L (23-29); Chloride 100 mEq/L (98-107); Glucose 154 mg/dL (70-105); Osmolality,Calculated 291 (280-300); Potassium 4.5 mEq/L (3.5-5.1); Sodium 133 mEq/L (136-145); eGFR For African Americans > 60 (> 60); eGFR For Non-African Americans 55 (> 60)
[2021-01-31] MEDS: *HR* Enoxaparin 40 MG/0.4 ML SYRINGE SQ SCH (06:40)
[2021-01-31 07:20] LABS: Basophils % 0.1 %; Eosinophils % 0.1 %; Hematocrit 39.8 % (37.5-50.1); Hemoglobin 13.6 g/dL (12.9-16.9); Immature Granulocytes % 9.7 % (0-4); Lymphocytes # 1.5 K/mcL (0.6-4.6); Lymphocytes % 12.4 %; Mean Corpuscular HGB Conc 34.2 g/dL (31.6-35.5); Mean Corpuscular Hemoglobin 29.5 pg (28.0-33.3); Mean Corpuscular Volume 86.3 fL (83.0-100.0); Mean Platelet Volume 10.3 fL (9.4-12.4); Monocytes # 1.7 K/mcL (0.0-1.3); Monocytes % 14.2 %; Neutrophils # 7.6 K/mcL (1.6-8.9); Platelet Count 268 K/mcL (140-400); Red Blood Count 4.61 M/mcL (4.19-5.50); Red Cell Distribution Width 14.4 % (11.5-14.5); Segmented Neutrophils % 63.5 %; White Blood Count 11.9 K/mcL (4.3-11.1)
[2021-01-31 07:36] LABS: BUN/Creatinine Ratio 35 (6-26); Blood Urea Nitrogen 42 mg/dL (8-23); Calcium 8.3 mg/dL (8.6-10.3); Carbon Dioxide 25 mEq/L (23-29); Chloride 101 mEq/L (98-107); Glucose 133 mg/dL (70-105); Osmolality,Calculated 290 (280-300); Potassium 3.9 mEq/L (3.5-5.1); Sodium 134 mEq/L (136-145); eGFR For African Americans > 60 (> 60); eGFR For Non-African Americans > 60 (> 60)
[2021-01-31] MEDS: lisinopriL 20 MG TABLET PO SCH (08:12)
[2021-01-31] MEDS: hydrOXYzine pamoate 25 MG CAPSULE PO SCH ×2 (08:12→20:32)
[2021-01-31] MEDS: Furosemide 40 MG TABLET PO SCH (08:12)
[2021-01-31] MEDS: Dexamethasone Sodium Phos/PF 10 MG/ML VIAL IVP SCH (08:12)
[2021-01-31] MEDS: Insulin LISPRO 300 UNITS/3 ML VIAL SUBQ SCH ×4 (08:13→20:39)
[2021-01-31] MEDS: Isosorbide MONOnitrate (24 HR) 30 MG TAB.ER.24H PO SCH (08:13)
[2021-01-31] MEDS: Budesonide/Formoterol 160/4.5 1 PUFF INH IH SCH ×2 (10:26→20:04)
[2021-01-31] MEDS: Tiotropium 10 INH DOSE IH SCH (10:27)
[2021-01-31] MEDS ORDERED: Isovue-370 500 ML BOTTLE IVP ONE (13:10)
[2021-01-31] MEDS ORDERED: Aspirin 81 MG TAB.CHEW PO SCH (13:15)
[2021-01-31] MEDS: Apixaban 5 MG TABLET PO SCH ×2 (14:05→20:32)
[2021-01-31 19:52] VITALS: BP 128/67; PULSE 64; TEMP 97.5
[2021-01-31 20:08] VITALS: RESP 20
[2021-01-31 20:51] VITALS: O2SAT 94
== END 2021-02-01 00:04 | DRG 177 ==
LOC: EMEROOGRE 20:51 → INPGRE 20:51 → OBSVTOIN 01-21 02:29 → INPGRE 01-21 02:57
PROVIDERS: ADMIT Internal Medicine; ATTEND Internal Medicine